=== PATIENT | male | born 1995 | race Caucasian/White ===

== ENCOUNTER 2020-09-17 16:30 | Emergency (ER) | payer OTHER, SELFPAY ==
[2020-09-17 17:08] VITALS: BP 155/100; PULSE 120; RESP 18; TEMP 36.4; O2SAT 94; BMI 54.3
[2020-09-17 17:09] LABS: POC Glucose,Bedside 596 (70-110)
--- NOTE | 2020-09-17 17:11 | PC.NURSE ---
BEDSIDE FS 597 PERFORMED BY RAFA DEAN
--- NOTE | 2020-09-17 17:22 | HMH.EDUTC ---
[facility] [place] Disposition Clinical Impression: Hyperglycemia Disposition: Still a Patient Condition on Discharge: Good Referrals: PCP,No [Primary Care Provider] - Time of Disposition: 17:40 (sent to ed) Medical Decision Making - Timothy Inquiry Pt receiving controlled substance: No Vital Signs: 09/17/20 17:08 Temperature 97.5 F L Temperature Source Oral Pulse Rate [Right] 120 H Respiratory Rate 18 Blood Pressure [Right Arm] 155/100 H Blood Pressure Mean [Right Arm] 118 Blood Pressure Source [Right Arm] Automatic Cuff Blood Pressure Position [Right Arm] Sitting 02 Sat by Pulse Oximetry 94 L Oxygen Delivery Method Room Air - Lab Data Lab Results 09/17/20 17:03: POC Glucose 596 H* Orders (Tests/Meds): ORDERS Category Date Time Status Acetone, Serum (Rapid) Stat Lab 09/17/20 17:07 Ordered C-Peptide Stat Lab 09/17/20 17:07 Ordered Complete Blood Count Auto Diff Stat Lab 09/17/20 17:07 Ordered Comprehensive Metabolic Panel Stat Lab 09/17/20 17:07 Ordered Hemoglobin A1C Stat Lab 09/17/20 17:06 Ordered [facility] [place] HPI - General Chief complaint: Urgent Treatment Center Stated complaint: dry mouth Time Seen by Provider: 09/17/20 17:33 Mode of Arrival: Ambulatory Source of Information: Patient Limitations: No Limitations Description of Symptoms (Recalled from Triage Doc. by RN): PT DID A FS AT HOME AND IT WAS 581. PT IS NOT DIABETIC TO HIS KNOWLEDGE. FS HERE IS 597 HEENT Symptoms (Recalled from RN notes): No Resp Symptoms (Recalled from RN notes): No Skin Symptoms (Recalled from RN notes): No MS Symptoms (Recalled from RN notes): No Functional Status (Recalled from RN notes): NA - History of Present Illness Provider Complaint: 25yr old male presents for dry mouth,nausea,freq voiding,and checked glucose and it was over 500. pt states he has not been eating or drinking well due to nausea. - Related Data Previous Rx's Medication Instructions Recorded Amoxicillin [Amoxicillin 500mg 500 mg PO TID #30 cap 12/07/17 Cap] Ondansetron [Zofran 4mg ODT] 4 mg PO Q8H PRN #15 tab.rapdis 12/07/17 Allergies Allergy/AdvReac Type Severity Reaction Status Date / Time No Known Allergies Allergy Verified 09/17/20 17:16 - Worker's Comp Is this a Worker's Comp case?: No [facility] History - Hepatitis A Screen Drug use history?: No High risk sexual behaviors?: No History of sexually transmitted infection?: No Currently employed?: No Childcare worker?: No Do you have indoor plumbing?: Yes Do you have electricity?: Yes Attestation statement:: This patient has been screened for Hepatitis A risk factors. I have reviewed the patient's past medical history: Yes Other Surgeries: Yes: No Previous Surgery Amputation: No Fractures: No - Social History Smoking Status: Current some day smoker Tobacco Type: smokeless tobacco # Packs/Day (cigarettes): 0 Alcohol Intake: never Alcohol Intake Frequency:: holidays/special occasions only Occupational Status: other Family Hx:: Adopted ROS Obtained: Yes Systems reviewed as appropriate & no additional complaints - Constitutional Constitutional: Reports system reviewed and no additional complaints, except as docu, Denies fever(s) - Eyes Eyes: Reports system reviewed and no additional complaints, except as docu, Denies blurry vision - ENT Ears, Nose, Mouth, and Throat: Reports system reviewed and no additional complaints, except as docu, Denies sore throat - Cardiovascular Cardiovascular: Reports system reviewed and no additional complaints, except as docu, Denies chest pain - Respiratory Respiratory: Reports system reviewed and no additional complaints, except as docu, Denies dyspnea - Gastrointestinal Gastrointestingal: Reports: system reviewed and no additional complaints, except as docu, as per HPI, nausea, vomiting - Genitourinary Male Genitourinary: Reports system reviewed and no additional complaints, except as docu - Musculoske
[2020-09-17 17:28] VITALS: BP 135/96; PULSE 122; RESP 18; TEMP 36.7; O2SAT 96; BMI 54.5
[2020-09-17 17:35] LABS: Apearance,Urine Clear (Clear); Color,Urine Yellow (Yellow); PH,Urine 5.5 (5.0-8.5)
[2020-09-17 17:36] LABS: Protein,Urine 2+ (Negative); Specific Gravity, Urine <= 1.005 (1.005-1.030)
[2020-09-17 17:37] LABS: Blood, Urine Trace (Negative); Glucose,Urine (UA) 4+ (Negative); Ketones,Urine 2+ (Negative)
--- NOTE | 2020-09-17 17:38 | PC.NURSE ---
notified will in RT of vbg
[2020-09-17 17:41] LABS: Bilirubin,Urine Negative (Negative); UTC Leukocyte Esterase,Urine Negative (Negative); UTC Nitrate,Urine Negative (Negative); Urobilinogen,Urine 0.2 EU/dl (0.2)
[2020-09-17 17:46] LABS: VBG Base Excess -3.5 mmol/L (-2.4-2.3); VBG HCO3 21.5 mmol/L (23-30); VBG Oxygen Saturation 97.5 % (50-70); VBG PCO2 36.4 mmol/L (35-51); VBG PH 7.39 mmol/L (7.31-7.41); VBG PO2 94.1 mmol/L (28-40); VBG Total CO2 22.6 mmol/L (23-27)
[2020-09-17 17:49] LABS: Microscopic, Urine URINE MICROSCOPIC (MICROSCOPIC)
[2020-09-17 17:50] LABS: Basophils # 0.1 K/mm3 (0-0.2); Basophils % 0.7 % (0.1-2.0); Eosinophils # 0.1 K/mm3 (0.0-0.4); Eosinophils % 0.5 % (0.1-12.0); Hematocrit 45.9 % (42.0-52.0); Hemoglobin 15.4 g/dL (14.1-18.0); Lymphocytes # 3.6 K/mm3 (0.7-4.5); Lymphocytes % 30.3 % (10-50); Mean Corpuscular HGB Conc 33.5 g/dL (31.8-35.4); Mean Corpuscular Volume 83.7 fl (80-94); Mean Platelet Volume 8.1 fl (7.4-10.4); Monocytes # 0.7 K/mm3 (0.1-1.0); Monocytes % 5.9 % (1.7-9.3); Neutrophils # 7.5 K/mm3 (1.8-7.8); Neutrophils % 62.7 % (37.0-80.0); Platelet Count 333 K/mm3 (142-424); Red Blood Count 5.49 M/mm3 (4.60-6.20); Red Cell Distribution Width 13.7 % (11.5-17.5)
--- NOTE | 2020-09-17 18:01 | HMH.EDGENADL ---
ED Disposition Clinical Impression: Hyperglycemia, Diabetes mellitus, new onset Disposition: Home, Self-Care Condition on Discharge: Good Instructions: DI for Diabetes Type 2, DI for Hyperglycemia -- Adult Additional Instructions: Take Metformin as prescribed. Follow-up in the office tomorrow with Valentin Martinez NP for Dr. Gonzalez. Call tomorrow morning to arrange appointment time. Prescriptions: Metformin HCl 500 mg PO BID #60 tab Transmission Status: Received by [id number] Referrals: PCP,No [Primary Care Provider] - - Critical Care Critical Care Time: No Attestation: On 09/17/20, the high probability of a clinically significant, sudden or life threatening deterioration of the following system(s) required my full and direct attention, intervention and personal management. The time I documented below is in addition to time spent performing reported procedures but includes the following listed in this critical care notation. Medical Decision Making - Timothy Inquiry Pt receiving controlled substance: No Vital Signs: 09/17/20 17:08 09/17/20 17:28 09/17/20 18:10 Temperature 97.5 F L 98.1 F Temperature Source Oral Oral Pulse Rate [Right] 120 H 122 H 116 H Respiratory Rate 18 18 Blood Pressure [Right Arm] 155/100 H 135/96 H 131/81 Blood Pressure Mean [Right Arm] 118 109 97 Blood Pressure Source [Right Arm] Automatic Cuff Automatic Cuff Automatic Cuff Blood Pressure Position [Right Arm] Sitting Sitting Sitting 02 Sat by Pulse Oximetry 94 L 96 94 L Oxygen Delivery Method Room Air Room Air Room Air - Lab Data Lab Results 09/17/20 17:03: POC Glucose 596 H* 09/17/20 17:07: Hemoglobin A1c 10.2 H 09/17/20 17:07: WBC 12.0 H, RBC 5.49, Hgb 15.4, Hct 45.9, MCV 83.7, MCH 28.0, MCHC 33.5, RDW 13.7, Plt Count 333, MPV 8.1, Neut % (Auto) 62.7, Lymph % (Auto) 30.3, [place] % (Auto) 5.9, Eos % (Auto) 0.5, Baso % (Auto) 0.7, Neut # (Auto) 7.5, Lymph # (Auto) 3.6, [place] # (Auto) 0.7, Eos # (Auto) 0.1, Baso # (Auto) 0.1 09/17/20 17:07: Sodium 134 L, Potassium 4.0, Chloride 92 L, Carbon Dioxide 24, Anion Gap 22.0 H, BUN 11, Creatinine 0.80, Estimated Creat Clear 126, Estimated GFR 117, Est GFR ( Amer) 141, Glucose 614 H*, Calcium 10.9 H, Total Bilirubin 1.1, AST 49, ALT 103 H, Alkaline Phosphatase 142 H, Total Protein 9.7 H, Albumin 5.4 H, Globulin 4.3 H, Albumin/Globulin Ratio 1.3, Acetone Level Small 09/17/20 17:12: Urine Color Yellow, Urine Appearance Clear, Urine pH 5.5, Ur Specific [place] <= 1.005, Urine Protein 2+, Urine Glucose (UA) 4+, Urine Ketones 2+, Urine Blood Trace, Urine Nitrate Negative, Urine Bilirubin Negative, Urine Urobilinogen 0.2, Ur Leukocyte Esterase Negative 09/17/20 17:20: Urine Color Yellow, Urine Appearance Clear, Urine pH 5.5, Ur Specific [place] 1.015, Urine Protein 2+, Urine Glucose (UA) 3+, Urine Ketones 1+, Urine Blood Trace-i, Urine Nitrate Negative, Urine Bilirubin Negative, Urine Urobilinogen 0.2, Ur Leukocyte Esterase Negative, Urine RBC 3-5, Urine WBC 10-20, Ur Squamous Epith Cells 5-10, Urine Bacteria Trace 09/17/20 17:44: VBG pH 7.39, VBG pCO2 36.4, VBG pO2 94.1 H, VBG HCO3 21.5 L, VBG Total CO2 22.6 L, VBG O2 Saturation 97.5 H, VBG Base Excess -3.5 L 09/17/20 19:36: POC Glucose 404 H* Result diagrams: 09/17/20 17:07 09/17/20 17:07 Orders (Tests/Meds): ED MEDICATIONS Generic Name Dose Route Start Last Admin Trade Name Freq PRN Reason Stop Dose Admin Sodium Chloride 1,000 mls @ 999 mls/hr 09/17/20 17:30 09/17/20 17:30 Sod Chlor 0.9% 1000ml Bag IV 09/17/20 18:30 999 mls/hr .Q1H1M IRINEO Administration Discontinued Medications Generic Name Dose Route Start Last Admin Trade Name Freq PRN Reason Stop Dose Admin Insulin Human Regular 10 unit 09/17/20 18:12 09/17/20 18:16 Insulin Human Regular 100 Units/Ml 10ml Vial IVP 09/17/20 18:13 10 unit ONCE ONE Administration ORDERS Category Date Time Status C-Peptide Stat Lab 09/17/20 17:07 Rec
[2020-09-17 18:10] VITALS: BP 131/81; PULSE 116; O2SAT 94
[2020-09-17 18:27] LABS: Chloride 92 mmol/L (98-107); Sodium 134 mmol/L (136-145)
[2020-09-17 18:30] LABS: Alanine Aminotransferase 103 U/L (12-78); Albumin Level 5.4 g/dl (3.5-5.0); Albumin/Globulin Ratio 1.3 (1.1-1.8); Alkaline Phosphatase 142 U/L (38-126); Aspartate Amino Transferase 49 U/L (17-59); Bilirubin,Total 1.1 mg/dl (0.2-1.3); Blood Urea Nitrogen 11 mg/dl (9-20); Calcium 10.9 mg/dl (8.4-10.2); Carbon Dioxide 24 mmol/L (22.0-30.0); Creatinine Clearance Estimated 126 mL/min (50-200); Estimated Glomerular Filt Rate 117 ml/min (>60); GFR (African American) 141 ML/MIN (>60); Globulin 4.3 g/dL (1.3-3.2); Total Protein,Serum 9.7 g/dl (6.3-8.2)
[2020-09-17 18:31] LABS: Appearance,Urine CLEAR (Clear); Bilirubin,Urine Negative (Negative); Blood, Urine TRACE-I (Negative); Color,Urine YELLOW (Yellow); Glucose,Urine (UA) 3+ (Negative); Ketones,Urine 1+ (Negative); Leukocyte Esterase,Urine Negative (Negative); Nitrate,Urine Negative (Negative); PH,Urine 5.5 (5.0-8.5); Protein,Urine 2+ (Negative); Specific Gravity, Urine 1.015 (1.005-1.030); Urobilinogen,Urine 0.2 EU/dl (0.2)
[2020-09-17 18:42] LABS: Glucose 614 mg/dl (74-100); Hemoglobin A1C 10.2 % (4.0-6.0)
[2020-09-17 19:00] LABS: Acetone, Serum (Rapid) Small (None Detect)
--- NOTE | 2020-09-17 19:09 | PC.NURSE ---
after speaking with Dr. Gonzalez ER when to speak with pt about POC pt stating to ER MD that he does not want to be admitted ER MD states to wait to swab pt for covid and he will speak with Dr. Gonzalez at shift change ER MD states to recheck pt fsbs at 1930
[2020-09-17 19:12] LABS: Bacteria,Urine Trace /lpf
[2020-09-17 19:55] LABS: POC Glucose,Bedside 404 (70-110)
[2020-09-17 20:13] VITALS: BP 134/84; PULSE 110; RESP 18; TEMP 36.7; O2SAT 94
[2020-09-20 18:38] LABS: C-Peptide 4.5 ng/mL (1.1-4.4)
== END 2020-09-17 20:17 | disposition home or self-care (01) ==
LOC: UTC 16:36 → ER 17:28
PROVIDERS: Nurse Practitioner Family; Emergency Provider Emergency Medicine
DX: E11.65 Type 2 diabetes mellitus with hyperglycemia (principal); F17.210 Nicotine dependence, cigarettes, uncomplicated; R63.1 Polydipsia
CPT/HCPCS: 80053; 81001; 81003; 82009; 82803; 82962; 83036; 84681; 85025; 87086; 96375; 99284

== ENCOUNTER → 2020-09-25 18:33 | Outpatient (CLI) | payer OTHER, SELFPAY ==
[2020-09-25 19:33] LABS: Cholesterol 166 mg/dl (140-200); HDL Cholesterol 33 mg/dl (40-60); Triglycerides 257 mg/dl (30-150); VLDL Cholesterol 51 mg/dL (0-40)
[2020-09-25 19:44] LABS: Direct LDL Cholesterol 99.61 mg/dL (100-129)
[2020-09-25 19:53] LABS: T4 (Thyroxine) 12.8 ug/dl (5.53-11.0)
[2020-09-25 20:07] LABS: Thyroid Stimulating Hormone 0.68 uIU/mL (0.465-4.68)
== END ==
PROVIDERS: Visit Provider Nurse Practitioner Family
DX: E11.9 Type 2 diabetes mellitus without complications (principal)
CPT/HCPCS: 80061; 84436; 84443

== ENCOUNTER → 2021-01-29 14:21 | Outpatient (CLI) | payer OTHER, SELFPAY ==
[2021-01-29 14:57] LABS: Basophils # 0.1 K/mm3 (0-0.2); Basophils % 0.5 % (0.1-2.0); Eosinophils # 0.1 K/mm3 (0.0-0.4); Eosinophils % 1.2 % (0.1-12.0); Hematocrit 43.2 % (42.0-52.0); Hemoglobin 14.5 g/dL (14.1-18.0); Lymphocytes # 3.2 K/mm3 (0.7-4.5); Lymphocytes % 29.8 % (10-50); Mean Corpuscular HGB Conc 33.4 g/dL (31.8-35.4); Mean Corpuscular Hemoglobin 27.6 pg (27.0-31.2); Mean Corpuscular Volume 82.5 fl (80-94); Monocytes # 0.5 K/mm3 (0.1-1.0); Monocytes % 4.6 % (1.7-9.3); Neutrophils # 6.9 K/mm3 (1.8-7.8); Neutrophils % 63.9 % (37.0-80.0); Platelet Count 349 K/mm3 (142-424); Red Blood Count 5.24 M/mm3 (4.60-6.20); Red Cell Distribution Width 13.4 % (11.5-17.5); White Blood Count 10.8 K/mm3 (4.8-10.8)
[2021-01-29 15:31] LABS: Hemoglobin A1C 6.1 % (4.0-6.0)
[2021-01-29 16:07] LABS: Alanine Aminotransferase 49 U/L (12-78); Albumin Level 4.5 g/dl (3.5-5.0); Albumin/Globulin Ratio 1.6 (1.1-1.8); Alkaline Phosphatase 61 U/L (38-126); Anion Gap 15.7 mEq/L (5-15); Aspartate Amino Transferase 35 U/L (17-59); Bilirubin,Total 0.5 mg/dl (0.2-1.3); Blood Urea Nitrogen 9 mg/dl (9-20); Calcium 9.8 mg/dl (8.4-10.2); Carbon Dioxide 25 mmol/L (22.0-30.0); Chloride 105 mmol/L (98-107); Cholesterol 180 mg/dl (140-200); Estimated Glomerular Filt Rate 136 ml/min (>60); GFR (African American) 165 ML/MIN (>60); Globulin 2.9 g/dL (1.3-3.2); Glucose 107 mg/dl (74-100); HDL Cholesterol 36 mg/dl (40-60); Potassium 4.7 mmoL/L (3.5-5.1); Sodium 141 mmol/L (136-145); Total Protein,Serum 7.4 g/dl (6.3-8.2); Triglycerides 98 mg/dl (30-150); VLDL Cholesterol 20 mg/dL (0-40)
[2021-01-29 16:18] LABS: Direct LDL Cholesterol 119.03 mg/dL (100-129)
[2021-01-29 16:25] LABS: T4 (Thyroxine) 9.6 ug/dl (5.53-11.0)
[2021-01-29 16:38] LABS: Thyroid Stimulating Hormone 1.46 uIU/mL (0.465-4.68)
== END ==
PROVIDERS: Visit Provider Nurse Practitioner Family
DX: E11.9 Type 2 diabetes mellitus without complications (principal)
CPT/HCPCS: 36415; 80053; 80061; 82043; 83036; 84436; 84443; 85025

== ENCOUNTER 2022-10-01 08:00 | Emergency (ER) | payer BC, SELFPAY ==
[2022-10-01 08:10] VITALS: BP 158/74; PULSE 100; RESP 18; TEMP 37; O2SAT 95; BMI 47.0
--- NOTE | 2022-10-01 08:21 | EXP.UTC ---
Discharge Plan Disposition Patient Disposition: Home, Self-Care Condition: Good Prescriptions Prescriptions: New azithromycin [Zithromax] 250 mg tablet 250 mg PO UD DOSE PK Qty: 6 0RF Rx Instructions: Take two (2) tablets today, then one (1) tablet days #2 thru #5 [id number]-[id number] [Bromfed DM] 2-30-10 mg/5 mL Syrup 5 ml PO Q6H PRN (Reason: Cough) Qty: 240 0RF methylprednisolone 4 mg Tablets,Dose Pack 4 mg PO DIRECTED Qty: 21 0RF No Action lisinopril 2.5 mg tablet 2.5 mg PO DAILY Qty: 30 2RF simvastatin 5 mg tablet 5 mg PO DAILY Qty: 30 2RF aspirin [Adult Low Dose Aspirin] 81 mg tablet,delayed release (DR/EC) 81 mg PO DAILY Qty: 30 2RF (DME) blood-glucose meter [Accu-Chek Guide Glucose Meter] Misc See Rx Instructions .ROUTE .MEDSUPPLY Qty: 1 3RF Rx Instructions: As directed (DME) Accu-Chek Guide test strips Strip See Rx Instructions .ROUTE .MEDSUPPLY Qty: 10 0RF Rx Instructions: As directed (DME) lancets [Accu-Chek Fastclix Lancet Drum] Misc See Rx Instructions .ROUTE .MEDSUPPLY Qty: 100 0RF Rx Instructions: As directed metformin 500 MG tablet 500 mg PO BID Qty: 60 0RF Referrals Follow up/Referrals: Valentin Martinez APRN [Primary Care Provider] - See instructions Activity Restrictions/Add. Instructions Additional Instructions/Restrictions: Drink plenty of fluids. Take tylenol or ibuprofen for pain or fever. Take the medications as directed. Follow up with your regular doctor. GO TO THE ER FOR ANY WORSENING SYMPTOMS Clinical Impressions Clinical Impression: Pharyngitis, Bronchitis Stand Alone Forms Stand Alone Forms: Work/School Release Discharge ED Provider: Jules Thakkar [facility] [place] HPI General Stated complaint: Sore throat cough drainage congestion Time Seen by Provider: 10/01/22 08:21 History of Present Illness Provider Complaint: He states that for the past 5 days he has had a sore throat, sinus congestion and malaise. Related Data Previous Rx's Medication Instructions Recorded metformin 500 mg tablet 500 mg PO BID #60 tabs 02/23/21 aspirin 81 mg tablet,delayed 81 mg PO DAILY #30 tabs 09/25/20 release (Adult Low Dose Aspirin) blood sugar diagnostic (Accu-Chek #10 ea 09/25/20 Guide test strips) blood-glucose meter (Accu-Chek #1 ea 09/25/20 Guide Glucose Meter) lancets (Accu-Chek Fastclix Lancet #100 ea 09/25/20 Drum) lisinopril 2.5 mg tablet 2.5 mg PO DAILY #30 tabs 09/25/20 simvastatin 5 mg tablet 5 mg PO DAILY #30 tabs 09/25/20 azithromycin 250 mg tablet 250 mg PO UD DOSE PK #6 tabs 10/01/22 (Zithromax) xzerhcnfwudqgtn-lfcesmvijeetbeh-PM 5 ml PO Q6H PRN Cough #240 mL 10/01/22 2 mg-30 mg-10 mg/5 mL oral syrup (Bromfed DM) methylprednisolone 4 mg tablets in 4 mg PO DIRECTED #21 tabs 10/01/22 a dose pack Allergies Allergy/AdvReac Type Severity Reaction Status Date / Time No Known Allergies Allergy Verified 10/01/22 08:[address] [facility] Disclaimer: The information contained in this section may have been updated after the patient was seen, as this information can be updated by other users. Social History Smoking Status: Current some day smoker tobacco type: smokeless tobacco alcohol intake: current substance use type: denies use current occupational status: student and other Travel in the last 8 weeks: None household members: family housing: house ROS Obtained: Yes All systems reviewed & no additional complaints except as documented Constitutional Constitutional: Reports chills and Reports fever(s) Eyes Eyes: Denies eye discharge ENT Ears, Nose, Mouth, and Throat: Reports as per HPI Cardiovascular Cardiovascular: Denies chest pain Respiratory Respiratory: Denies shortness of breath, Reports chest congestion, Reports cough, Denies stridor and Denies wheezing Gastrointestinal Gastrointes
[2022-10-01 09:15] VITALS: BP 149/73; PULSE 98; RESP 18; TEMP 37.1; O2SAT 96
== END 2022-10-01 09:15 | disposition home or self-care (01) ==
PROVIDERS: Emergency Provider Nurse Practitioner Family; PCP Nurse Practitioner Family
DX: J20.9 Acute bronchitis, unspecified (principal); J02.9 Acute pharyngitis, unspecified; R53.81 Other malaise; F17.290 Nicotine dependence, other tobacco product, uncomplicated
CPT/HCPCS: 87804; 87880; 99212; 99214; G0463

== ENCOUNTER 2023-04-06 12:42 | Emergency (ER) | payer BC, SELFPAY ==
[2023-04-06 12:55] VITALS: BP 135/80; PULSE 104; RESP 20; TEMP 36.8; O2SAT 95; BMI 49.3
--- NOTE | 2023-04-06 13:03 | EXP.UTC ---
Discharge Plan Disposition Patient Disposition: Home, Self-Care Condition: Good Prescriptions Prescriptions: New amoxicillin-pot clavulanate 875-125 mg Tablet 1 tab PO Q12H Qty: 14 0RF fluticasone propionate [Flonase Allergy Relief] 50 mcg/actuation spray,suspension 1 - 2 spray intranasal DAILY Qty: 16 0RF Rx Instructions: administer into each nostril each day No Action lisinopril 2.5 mg tablet 2.5 mg PO DAILY Qty: 30 2RF simvastatin 5 mg tablet 5 mg PO DAILY Qty: 30 2RF aspirin [Adult Low Dose Aspirin] 81 mg tablet,delayed release (DR/EC) 81 mg PO DAILY Qty: 30 2RF (DME) blood-glucose meter [Accu-Chek Guide Glucose Meter] Misc See Rx Instructions .ROUTE .MEDSUPPLY Qty: 1 3RF Rx Instructions: As directed (DME) Accu-Chek Guide test strips Strip See Rx Instructions .ROUTE .MEDSUPPLY Qty: 10 0RF Rx Instructions: As directed (DME) lancets [Accu-Chek Fastclix Lancet Drum] Misc See Rx Instructions .ROUTE .MEDSUPPLY Qty: 100 0RF Rx Instructions: As directed metformin 500 MG tablet 500 mg PO BID Qty: 60 0RF azithromycin [Zithromax] 250 mg tablet 250 mg PO UD DOSE PK Qty: 6 0RF Rx Instructions: Take two (2) tablets today, then one (1) tablet days #2 thru #5 [id number] [Bromfed DM] 2-30-10 mg/5 mL Syrup 5 ml PO Q6H PRN (Reason: Cough) Qty: 240 0RF methylprednisolone 4 mg Tablets,Dose Pack 4 mg PO DIRECTED Qty: 21 0RF Referrals Follow up/Referrals: Valentin Martinez APRN [Primary Care Provider] - See instructions Activity Restrictions/Add. Instructions Additional Instructions/Restrictions: *Monitor Temp, Over the counter Motrin or Tylenol as directed/as needed Tylenol every 4 hours and Motrin every 6 hours (as long as your family doctor has told you that you can take it) for fever or pain. and straight to ER if unable to lower temp less than 101.0 after medication given *Warm salt water gargles may help to soothe the throat *Throat Lozenges? *Warm fluids like tea with honey may help to soothe the throat? *Sleep elevated *Humidifier/Vaporizer *Flonase 2 sprays in each nostril daily but be aware that it may take 2-3 days before you notice improvement Take medication as prescribed Follow up IMMEDIATELY for new or worsening symptoms or no Noticeable improvement over the next 48-72 hours. 911 for difficulty breathing or swallowing Clinical Impressions Clinical Impression: Sinusitis Qualifiers: Sinusitis location: unspecified location Chronicity: unspecified Qualified Code(s): J32.9 - Chronic sinusitis, unspecified Stand Alone Forms Stand Alone Forms: Work/School Release Instructions Patient Instructions: Sinusitis, DI for Sinusitis Discharge ED Provider: Libby Houser [facility] [place] General Stated complaint: sinus pressure,sore throat,achey Mode of Arrival: Ambulatory Source of Information: Patient Limitations: No Limitations Time Seen by Provider: 04/06/23 13:03 Description of Symptoms (Recalled from Triage Doc. by RN): PATIENT C/O SINUS PRESSURE, SORE THROAT AND FEVER SINCE WEDNESDAY HEENT Symptoms (Recalled from RN notes): Yes Resp Symptoms (Recalled from RN notes): No Skin Symptoms (Recalled from RN notes): No MS Symptoms (Recalled from RN notes): No Functional Status (Recalled from RN notes): WNL History of Present Illness Provider Complaint: Patient states that he thinks he has a sinus infection State that he has been having sinus congestion for several days and got worse on Wednesday and has been having sinus pain and pressure, sore throat, and low grade fever States that today he pressure behind his eyes was worse so he came in to get checked Related Data Previous Rx's Medication Instructions Recorded metformin 500 mg tablet 500 mg PO BID #60 tabs 09/17/20 aspirin 81 mg tablet,delayed 81 mg PO DAILY #30 tabs 09/25/20 release (Adult Low Dose Aspirin)
[2023-04-06 13:10] VITALS: BP 135/80; PULSE 104; RESP 20; TEMP 36.8; O2SAT 95
== END 2023-04-06 13:14 | disposition home or self-care (01) ==
PROVIDERS: Emergency Provider Nurse Practitioner; PCP Nurse Practitioner Family
DX: J01.90 Acute sinusitis, unspecified (principal); R50.9 Fever, unspecified; F17.290 Nicotine dependence, other tobacco product, uncomplicated
CPT/HCPCS: 99212; 99214; G0463

== ENCOUNTER 2023-07-28 09:23 | Emergency (ER) | payer BC, SELFPAY ==
[2023-07-28 09:34] VITALS: BP 120/86; PULSE 99; RESP 18; TEMP 37.1; O2SAT 95; BMI 49.3
--- NOTE | 2023-07-28 10:00 | ED_ITS ---
Discharge Plan Disposition Patient Disposition: Home, Self-Care Condition: Good Prescriptions Prescriptions: New azithromycin [azithromycin] 250 mg tablet 250 mg PO DIRECTED Qty: 6 0RF Rx Instructions: Take two (2) tablets on day #1, then one (1) tablet day #2 thru #5 fluticasone propionate [fluticasone propionate] 50 mcg/actuation spray,suspension 1 spray intranasal DAILY Qty: 9.9 0RF No Action (DME) blood-glucose meter [Accu-Chek Guide Glucose Meter] [facility] [place] See Rx Instructions .ROUTE .MEDSUPPLY Qty: 1 3RF Rx Instructions: As directed (DME) Accu-Chek Guide test strips Strip See Rx Instructions .ROUTE .MEDSUPPLY Qty: 10 0RF Rx Instructions: As directed (DME) lancets [Accu-Chek Fastclix Lancet Drum] [facility] [place] See Rx Instructions .ROUTE .MEDSUPPLY Qty: 100 0RF Rx Instructions: As directed fluticasone propionate [Flonase Allergy Relief] 50 mcg/actuation spray,suspension 1 - 2 spray intranasal DAILY Qty: 16 0RF Rx Instructions: administer into each nostril each day Referrals Follow up/Referrals: Valentin Martinez APRN [Primary Care Provider] - See instructions Activity Restrictions/Add. Instructions Additional Instructions/Restrictions: Start antibiotic patient to take as ordered for a full length of time even if you feel better. Sinus infections do not get better overnight. It may take 2-3 days to notice much improvement so be sure to use conservative measures as discussed for symptoms. Flonase 1 spray each nostril daily to help with nasal congestion, sinus and ear pressure/information Increase fluids Humidifier/vaporizer as needed Tylenol and ibuprofen as needed for fever or pain. If symptoms do not improve or get worse return or be seen in the ER Follow-up with primary care this week Clinical Impressions Clinical Impression: Sinusitis Qualifiers: Sinusitis location: maxillary Chronicity: acute Recurrence: non-recurrent Qualified Code(s): J01.00 - Acute maxillary sinusitis, unspecified Instructions Patient Instructions: DI for Sinusitis Discharge ED Provider: Juan ([facility])Valentin [facility] [place] HPI General Stated complaint: runny nose, congestion and cough Mode of Arrival: Ambulatory Source of Information: Patient Limitations: No Limitations Time Seen by Provider: 07/28/23 10:01 Description of Symptoms (Recalled from Triage Doc. by RN): sinus infection, fever, and soreness. HEENT Symptoms (Recalled from RN notes): Yes Resp Symptoms (Recalled from RN notes): No Skin Symptoms (Recalled from RN notes): No MS Symptoms (Recalled from RN notes): No Functional Status (Recalled from RN notes): n/a History of Present Illness Provider Complaint: 28 yr old male presents for sinus infection, fever, and soreness.pt states drainage is thick green, sinus tenderness Related Data Previous Rx's Medication Instructions Recorded blood sugar diagnostic (Accu-Chek #10 ea 09/25/20 Guide test strips) blood-glucose meter (Accu-Chek #1 ea 09/25/20 Guide Glucose Meter) lancets (Accu-Chek Fastclix Lancet #100 ea 09/25/20 Drum) fluticasone propionate 50 1 - 2 spray intranasal DAILY #16 04/06/23 mcg/actuation nasal grams spray,suspension (Flonase Allergy Relief) azithromycin 250 mg tablet 250 mg PO DIRECTED #6 tabs 07/28/23 fluticasone propionate 50 1 spray intranasal DAILY #9.9 mL 07/28/23 mcg/actuation nasal spray,suspension Allergies Allergy/AdvReac Type Severity Reaction Status Date / Time No Known Allergies Allergy Verified 07/28/23 09:46 Worker's Comp Is this a Worker's Comp case?: No [facility] Disclaimer: The information contained in this section may have been updated after the patient was seen, as this information can be updated by other users. Social History , [employer]) Smoking Status: Current some day smoker tobacco type: smokeless tobacco alcohol intake: current substance use type: denies use current occupational status: student and other Travel in the last 8 weeks: None household members: family housing: house ROS Obtained: Yes All systems reviewed & no additional complaints except as documented Constitutional Constitutional: Reports system reviewed and no additional complaints, except as documented Eyes Eyes: Reports system reviewed and no additional complaints, except as documented ENT Ears, Nose, Mouth, and Throat: Reports system reviewed and no additional complaints, except as documented, Reports as per HPI, Reports facial pain, Reports post nasal drip, Reports sinus pain and Reports sinus pressure Cardiovascular Cardiovascular: Reports system reviewed and no additional complaints, except as documented Respiratory Respiratory: Reports system reviewed and no additional complaints, except as documented Gastrointestinal Gastrointestingal: Reports system reviewed and no additional complaints, except as documented Musculoskeletal Musculoskeletal: Reports system reviewed and no additional complaints, except as documented Integumentary/Breasts Skin/Breast: Reports system reviewed and no additional complaints, except as documented Neurologic Neurologic: Reports system reviewed and no additional complaints, except as do cumented Endocrine Endocrine: Reports system reviewed and no additional complaints, except as documented Allergic/Immunologic Allergic/Immunologic: Reports system reviewed and no additional complaints, except as documented Physical Exam General General appearance: alert and in no apparent distress Head Head exam: atraumatic Eye Eye exam: Present normal appearance and PERRL ENT ENT exam: Present mucous membranes moist and TM's normal bilaterally Expanded ENT Exam Nose exam: Present sinus tenderness Respiratory Respiratory exam: Present normal lung sounds bilaterally Cardiovascular Cardiovascular exam: Present regular rate and normal rhythm Neurological Exam Neurological exam: Present alert and oriented X3 Medical Decision Making Medical Records Medical records reviewed: Yes I reviewed the patient's medical records. Timothy Inquiry Pt receiving controlled substance: No Timothy was queried for this patient: No Vital Signs: 07/28/23 09:34 Temperature 98.7 F Temperature Source Oral Pulse Rate [Right Radial] 99 H Respiratory Rate 18 Blood Pressure [Right Arm] 120/86 Blood Pressure Mean [Right Arm] 97 Blood Pressure Source [Right Arm] Automatic Cuff Blood Pressure Position [Right Arm] Sitting 02 Sat by Pulse Oximetry 95 Oxygen Delivery Method Room Air Lab Data Lab results reviewed: Yes I reviewed the patient's lab results.
[2023-07-28 10:18] VITALS: BP 120/86; PULSE 99; RESP 18; TEMP 37.1; O2SAT 95
== END 2023-07-28 10:18 | disposition home or self-care (01) ==
PROVIDERS: Emergency Provider Nurse Practitioner Family; PCP Nurse Practitioner Family
DX: J01.00 Acute maxillary sinusitis, unspecified (principal); R50.9 Fever, unspecified; R05.9 Cough, unspecified; R09.81 Nasal congestion; R09.82 Postnasal drip; F17.290 Nicotine dependence, other tobacco product, uncomplicated
CPT/HCPCS: 99212; 99214; G0463